=== PATIENT | female | born 1995 | race Caucasian/White ===

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

== ENCOUNTER 2017-04-18 18:51 | Emergency (ER) | payer MEDICAID, MEDICARE ==
[~2017-04-18] VITALS: Ht 172.7 cm; Wt 101.6 kg
[2017-04-18 19:13] VITALS: BP_SYST 124
[2017-04-18] MEDS ORDERED: ONDANSETRON 4 MG ODT TAB PO ONE (20:15)
[2017-04-18] MEDS ORDERED: IBUPROFEN 800 MG TABLET PO ONE (20:15)
[2017-04-18 20:26] LABS: BILIRUBIN,URINE NEGATIVE (NEGATIVE); BLOOD, URINE NEGATIVE (NEGATIVE); CLARITY/URINE SL CLOUDY (CLEAR); COLOR,URINE YELLOW (YELLOW); GLUCOSE,URINE NEGATIVE (NEGATIVE); KETONES,URINE TRACE (NEGATIVE); LEUKOCYTE ESTERASE ,URINE TRACE (NEGATIVE); NITRITE, URINE NEGATIVE (NEGATIVE); PH,URINE 7.5 (5.0-8.0); PROTEIN URINE NEGATIVE (NEGATIVE); UROBILINOGEN,URINE 0.2 (0.2-1.0)
[2017-04-18] MEDS ORDERED: NACL 0.9% 1,000 ML IV ONE (20:45)
[2017-04-18] MEDS ORDERED: ONDANSETRON HCL 4 MG/2 ML VIAL IVP ONE (20:45)
[2017-04-18] MEDS ORDERED: KETOROLAC TROMETHAMINE 30 MG VIAL IVP ONE (20:45)
[2017-04-18 20:50] LABS: INFLUENZA A&B ANTIGEN SCREEN NEGATIVE FOR A & B (NEGATIVE)
[2017-04-18 20:52] LABS: STREPTOCOCCUS A SCREEN (RAPID) POSITIVE (NEGATIVE)
[2017-04-18] MEDS ORDERED: PENICILLIN G BENZATHINE 1.2 MMU/2 ML SYR IM ONE (21:00)
[2017-04-18 21:05] LABS: RBC,URINE NONE SEEN /HPF (0-3)
[2017-04-18 21:06] LABS: BACTERIA,URINE FEW /HPF (None Seen)
[2017-04-18] MEDS ORDERED: AZITHROMYCIN 250 MG TABLET PO ONE (21:30)
[2017-04-18] MEDS: cefTRIAXone 1 GM IVPB PREMIX 50 ML IV ONE ×2 (21:42→21:44)
[2017-04-18 22:25] VITALS: BP_SYST 120
== END 2017-04-18 22:25 | disposition home or self-care (01) ==
LOC: SED 18:51
DX: J02.0 Streptococcal pharyngitis (principal); N10 Acute pyelonephritis; R03.0 Elevated blood-pressure reading, without diagnosis of hypertension
CPT/HCPCS: 36415; 81000; 81025; 86403; 86710; 87040; 87086; 87491; 87591; 96361; 96365; 96372; 96375; 99284; J0561; J0696; J1885; J2405; J7030; Q0144

== ENCOUNTER 2017-12-18 21:39 | Emergency (ER) | payer MEDICAID ==
[~2017-12-18] VITALS: Ht 170.2 cm; Wt 113.4 kg
[2017-12-18 21:40] VITALS: BP_SYST 101
--- NOTE | 2017-12-18 21:40 | NUR ---
Patient triaged and placed in waiting room. VSS and patient appears in no acute distress at this time. Accompanied by family, awaiting available bed, and MD notified of need for MSE.
--- NOTE | 2017-12-18 22:34 | NUR ---
Pt c/o nausea and vomiting with abdominal pain x 1 day. Pt denies dysuria, no vaginal discharge or bleeding. Pt states that she is about 19 weeks . No active vomiting at this time.
--- NOTE | 2017-12-18 22:34 | NUR ---
Patient to ER bed 3 to gown for evaluation. Side rails up. Report given to [place]io.
[2017-12-18] MEDS ORDERED: NACL 0.9% 1,000 ML IV ONE (22:37)
[2017-12-18] MEDS ORDERED: ONDANSETRON HCL 4 MG/2 ML VIAL IVP ONE (22:45)
--- NOTE | 2017-12-18 23:00 | NUR ---
Dr. Nichols at bedside.
[2017-12-18 23:02] LABS: BILIRUBIN,URINE NEGATIVE (NEGATIVE); BLOOD, URINE NEGATIVE (NEGATIVE); CLARITY/URINE CLEAR (CLEAR); COLOR,URINE YELLOW (YELLOW); GLUCOSE,URINE NEGATIVE (NEGATIVE); KETONES,URINE TRACE (NEGATIVE); LEUKOCYTE ESTERASE ,URINE NEGATIVE (NEGATIVE); NITRITE, URINE NEGATIVE (NEGATIVE); PH,URINE 6.5 (5.0-8.0); PROTEIN URINE NEGATIVE (NEGATIVE); UROBILINOGEN,URINE 0.2 (0.2-1.0)
[2017-12-18 23:18] LABS: BASOPHILS % (AUTO) 0.3 % (0.0-2.0); EOSINOPHILS # (AUTO) 0.2 K/uL (0.0-0.4); EOSINOPHILS % (AUTO) 1.4 % (0.0-4.0); HEMATOCRIT 36.3 % (36-48); LYMPHOCYTES # (AUTO) 2.4 K/uL (1.0-5.5); LYMPHOCYTES % (AUTO) 20.3 % (20.5-51.5); MEAN CORPUSCULAR HEMOGLOBIN 28 pg (27-31); MEAN CORPUSCULAR HGB CONC 33 % (32-36); MEAN CORPUSCULAR VOLUME 83 fL (79.0-98.0); MONOCYTES # (AUTO) 0.7 K/uL (0.0-1.0); MONOCYTES % (AUTO) 5.7 % (1.7-9.3); NEUTROPHILS # (AUTO) 8.3 K/uL (1.8-7.7); NEUTROPHILS % (AUTO) 72.3 % (40.0-70.0); PLATELET COUNT (AUTO) 321 K/uL (130-430); RED BLOOD CELL COUNT(AUTO) 4.36 MIL/uL (4.2-6.2); RED CELL DISTRIBUTION WIDTH 13.9 % (9.0-15.0); WHITE BLOOD COUNT (AUTO) 11.6 K/uL (4.5-11.0)
[2017-12-18 23:22] LABS: ALBUMIN 3.4 g/dL (3.4-4.8); CALCIUM 9.1 mg/dL (8.4-11.0); CREATININE 0.67 mg/dL (0.55-1.30); POTASSIUM 3.4 mmol/L (3.5-5.1); TOTAL BILIRUBIN 0.2 mg/dL (0.0-1.0)
--- NOTE | 2017-12-19 00:35 | NUR ---
Patient assessed for heart tones with portable doppler. No heart tones heard at this time. 2nd nurse to attempt assessment of heart tones at this time.
[2017-12-19 00:56] VITALS: BP_SYST 115
--- NOTE | 2017-12-19 00:56 | NUR ---
Patient given written and verbal discharge instructions and verbalizes understanding. ER MD discussed with patient the results and treatment provided. Patient in stable condition. ID arm band removed. IV catheter removed intact and dressing applied, no active bleeding. Rx of Zofran given. Patient educated on pain management and to follow up with PMD. Pain Scale 1/10. Opportunity for questions provided and answered. Medication side effect fact sheet provided.
== END 2017-12-19 00:56 | disposition home or self-care (01) ==
LOC: SED 21:39
DX: O21.0 Mild hyperemesis gravidarum (principal); Z3A.16 16 weeks gestation of pregnancy
CPT/HCPCS: 36415; 80053; 81003; 82150; 83690; 85025; 96361; 96374; 99284; J2405; J7030

== ENCOUNTER 2018-08-30 11:28 | Emergency (ER) | payer MEDICAID ==
[~2018-08-30] VITALS: Ht 170.2 cm; Wt 117.9 kg
[2018-08-30 11:36] VITALS: BP_SYST 156
--- NOTE | 2018-08-30 11:40 | NUR ---
Patient triaged and placed in waiting room. VSS and patient appears in no acute distress at this time. Accompanied by self , awaiting available bed, and MD notified of need for MSE.
--- NOTE | 2018-08-30 13:54 | NUR ---
BROUGHT BACK TO BED #8 AND REPORT GIVEN TO MARIA ESTHER
--- NOTE | 2018-08-30 13:56 | NUR ---
Pt brought by self ,A&Ox4, pt presents to ER with L facial pain and L gum pain , denies trauma, skin pink and warm, cap refill <3, VSS, no facial swelling noted.
--- NOTE | 2018-08-30 14:10 | NUR ---
Dr Vale at bedside examining patient.
[2018-08-30 14:51] VITALS: BP_SYST 141
--- NOTE | 2018-08-30 14:52 | NUR ---
Patient given written and verbal discharge instructions and verbalizes understanding. ER MD discussed with patient the results and treatment provided. Patient in stable condition. ID arm band removed Rx of MOTRIN given. Patient educated on pain management and to follow up with PMD. Pain Scale 0/10. Opportunity for questions provided and answered. Medication side effect fact sheet provided.
== END 2018-08-30 14:51 | disposition home or self-care (01) ==
LOC: SED 11:28
DX: K05.10 Chronic gingivitis, plaque induced (principal); R03.0 Elevated blood-pressure reading, without diagnosis of hypertension
CPT/HCPCS: 81025; 99283

== ENCOUNTER 2020-02-11 10:00 | Emergency (ER) | payer MEDICAID, SELFPAY ==
[~2020-02-11] VITALS: Ht 167.6 cm; Wt 77.1 kg
--- NOTE | 2020-02-11 10:20 | NUR ---
Patient triaged and placed in waiting room. VSS and patient appears in no acute distress at this time. Accompanied by self, awaiting available bed, and MD notified of need for MSE.
[2020-02-11 10:22] VITALS: BP_SYST 128
--- NOTE | 2020-02-11 10:30 | NUR ---
Pt brought by self, A&Ox4, pt presents to ER with SOB, covid +, O2 98 % at this time, skin pink and warm, cap refill <3, VSS.
--- NOTE | 2020-02-11 10:45 | NUR ---
Dr Graham evaluating patient in the tent
[2020-02-11 12:17] VITALS: BP_SYST 128
--- NOTE | 2020-02-11 12:17 | NUR ---
Patient given written and verbal discharge instructions and verbalizes understanding. ER MD discussed with patient the results and treatment provided. Patient in stable condition. ID arm band removed. Rx of Albuterol and Zofran given. Patient educated on pain management and to follow up with PMD. Pain Scale 2/10. Opportunity for questions provided and answered. Medication side effect fact sheet provided.
== END 2020-02-11 12:17 | disposition home or self-care (01) ==
LOC: SED 10:00
DX: U07.1 COVID-19 (principal); R06.02 Shortness of breath; R05 Cough
CPT/HCPCS: 99283

== ENCOUNTER 2020-03-18 18:12 | Emergency (ER) | payer MEDICAID, SELFPAY ==
[~2020-03-18] VITALS: Ht 170.2 cm; Wt 122.5 kg
[2020-03-18 18:15] VITALS: BP_SYST 147
[2020-03-18] MEDS ORDERED: LIDOCAINE 1% 10 MG/ML, 20 ML MDV INJ ONE (19:15)
[2020-03-18] MEDS ORDERED: BACITRACIN 1 GM OINT TP ONE ×2 (19:15→20:10)
[2020-03-18 20:08] VITALS: BP_SYST 140
== END 2020-03-18 20:08 | disposition home or self-care (01) ==
LOC: SED 18:12
DX: S61.412A Laceration without foreign body of left hand, initial encounter (principal); W25.XXXA Contact with sharp glass, initial encounter; Y93.89 Activity, other specified; Y92.89 Other specified places as the place of occurrence of the external cause; Y99.8 Other external cause status
CPT/HCPCS: 12002; 73130; 99283; J2001

== ENCOUNTER 2020-03-21 22:25 | Emergency (ER) | payer MEDICAID, SELFPAY ==
[~2020-03-21] VITALS: Ht 170.2 cm; Wt 122.5 kg
[2020-03-21 22:38] VITALS: BP_SYST 127
--- NOTE | 2020-03-21 22:38 | NUR ---
PT PLACED IN ER TENT
--- NOTE | 2020-03-21 22:40 | NUR ---
ED MD HOBBS AT PT SIDE TO EVALUATE PT
--- NOTE | 2020-03-21 22:40 | NUR ---
PT BIB SELF CC WORRIED ABOUT WOUND REPAIR TO LEFT HAND DONE AT ER THREE DAYS AGO PT STATES SHE FEELS LIKE THE WOUND OPENED UP 2 STITCHES PLACED 3 DAYS AGO TO LEFT HAND BETWEEN THUMB AND INDEX FINGER PT STATES THAT SHE THOUGHT IT OPENED UP OR NEEDED MORE STITCHES. WOUND IS WELL APROXIMATED NOT BLEEDING. VITAL SIGNS STABLE WILL CONTINUE TO MONITOR
[2020-03-21 23:05] VITALS: BP_SYST 127
--- NOTE | 2020-03-21 23:05 | NUR ---
Patient given written and verbal discharge instructions and verbalizes understanding. ER MD HOBBS discussed with patient the results and treatment provided. Patient in stable condition. ID arm band removed. Patient educated on pain management and to follow up with PMD. Pain Scale 0/10. Opportunity for questions provided and answered. Medication side effect fact sheet provided.
== END 2020-03-21 23:05 | disposition home or self-care (01) ==
LOC: SED 22:25
DX: S61.412D Laceration without foreign body of left hand, subsequent encounter (principal); W45.8XXD Other foreign body or object entering through skin, subsequent encounter
CPT/HCPCS: 99281

== ENCOUNTER 2021-01-11 10:22 | Emergency (ER) | payer MEDICAID, SELFPAY ==
[~2021-01-11] VITALS: Ht 170.2 cm; Wt 83.9 kg
[2021-01-11 10:27] VITALS: BP_SYST 111
[2021-01-11] MEDS ORDERED: ONDANSETRON 4 MG ODT TAB PO ONE (10:45)
[2021-01-11 11:22] LABS: CALCIUM 9.1 mg/dL (8.4-11.0); CREATININE 0.71 mg/dL (0.55-1.30); POTASSIUM 4.2 mmol/L (3.5-5.1)
[2021-01-11 11:23] LABS: BASOPHILS % (AUTO) 0.3 % (0.0-2.0); EOSINOPHILS # (AUTO) 0.2 K/uL (0.0-0.4); EOSINOPHILS % (AUTO) 1.5 % (0.0-4.0); HEMOGLOBIN 13.6 g/dL (12.0-16.0); LYMPHOCYTES # (AUTO) 1.8 K/uL (1.0-5.5); LYMPHOCYTES % (AUTO) 14.8 % (20.5-51.5); MEAN CORPUSCULAR HEMOGLOBIN 27 pg (27-31); MEAN CORPUSCULAR HGB CONC 33 % (32-36); MEAN CORPUSCULAR VOLUME 81 fL (79.0-98.0); MONOCYTES # (AUTO) 0.6 K/uL (0.0-1.0); MONOCYTES % (AUTO) 4.5 % (1.7-9.3); NEUTROPHILS # (AUTO) 9.5 K/uL (1.8-7.7); NEUTROPHILS % (AUTO) 78.9 % (40.0-70.0); PLATELET COUNT (AUTO) 414 K/uL (130-430); RED BLOOD CELL COUNT(AUTO) 5.07 MIL/uL (4.2-6.2); RED CELL DISTRIBUTION WIDTH 14.1 % (9.0-15.0); WHITE BLOOD COUNT (AUTO) 12.1 K/uL (4.8-10.8)
[2021-01-11] MEDS ORDERED: ONDA-8 TL (11:40)
[2021-01-11] MEDS ORDERED: IBUP-1969 PO (11:40)
== END 2021-01-11 12:07 | disposition home or self-care (01) ==
LOC: SED 10:22
DX: A08.39 Other viral enteritis (principal); Z79.899 Other long term (current) drug therapy
CPT/HCPCS: 36415; 71045; 80048; 81025; 85025; 99284; Q0162

== ENCOUNTER 2021-04-09 16:01 | Emergency (ER) | payer MEDICAID ==
[~2021-04-09] VITALS: Ht 162.6 cm; Wt 79.4 kg
[~2021-04-09 16:01] MED LIST: IBUP-1969 PO; ONDA-8 TL
[2021-04-09 17:14] VITALS: BP_SYST 122
[2021-04-09 17:41] LABS: BASOPHILS # (AUTO) 0.2 K/uL (0.0-0.2); BASOPHILS % (AUTO) 1.4 % (0.0-2.0); EOSINOPHILS # (AUTO) 0.2 K/uL (0.0-0.4); EOSINOPHILS % (AUTO) 1.5 % (0.0-4.0); HEMATOCRIT 39.7 % (36-48); LYMPHOCYTES # (AUTO) 2.7 K/uL (1.0-5.5); LYMPHOCYTES % (AUTO) 22.6 % (20.5-51.5); MEAN CORPUSCULAR HEMOGLOBIN 26 pg (27-31); MEAN CORPUSCULAR HGB CONC 33 % (32-36); MEAN CORPUSCULAR VOLUME 80 fL (79.0-98.0); MONOCYTES # (AUTO) 0.8 K/uL (0.0-1.0); MONOCYTES % (AUTO) 6.5 % (1.7-9.3); PLATELET COUNT (AUTO) 373 K/uL (130-430); RED BLOOD CELL COUNT(AUTO) 4.94 MIL/uL (4.2-6.2); RED CELL DISTRIBUTION WIDTH 14.4 % (9.0-15.0); WHITE BLOOD COUNT (AUTO) 11.7 K/uL (4.8-10.8)
[2021-04-09 17:59] LABS: PROTHROMBIN TIME 9.7 SECS (9.5-12.5)
[2021-04-09] MEDS ORDERED: ACETAMINOPHEN 500 MG TABLET PO ONE (18:30)
== END 2021-04-09 18:54 | disposition home or self-care (01) ==
LOC: SED 16:01
DX: N94.6 Dysmenorrhea, unspecified (principal); Z79.899 Other long term (current) drug therapy
CPT/HCPCS: 36415; 76801; 81025; 84702; 85025; 85610-TC; 85730-TC; 86900; 86901; 99284

== ENCOUNTER 2022-01-28 08:29 | Emergency (ER) | payer MEDICAID ==
[~2022-01-28] VITALS: Ht 170.2 cm; Wt 131.5 kg
--- NOTE | 2022-01-28 08:30 | NUR ---
Pt brought by self, A&Ox4, pt presents to ER with cough/congestion, skin pink and warm, cap refill <3, VSS, will cont to monitor.
[2022-01-28 08:48] VITALS: BP_SYST 150
--- NOTE | 2022-01-28 09:15 | NUR ---
Dr Sandhu evaluating patient at bedside
[2022-01-28] MEDS ORDERED: BENZ100C92 PO (10:05)
[2022-01-28] MEDS ORDERED: ALBMDI INH (10:05)
[2022-01-28 10:49] VITALS: BP_SYST 150
--- NOTE | 2022-01-28 10:50 | NUR ---
Patient given written and verbal discharge instructions and verbalizes understanding. ER MD discussed with patient the results and treatment provided. Patient in stable condition. ID arm band removed. Rx of Albuterol and Benzonatate given. Patient educated on pain management and to follow up with PMD. Pain Scale 2/10 . Opportunity for questions provided and answered. Medication side effect fact sheet provided.
== END 2022-01-28 10:49 | disposition home or self-care (01) ==
LOC: SED 08:29
DX: J06.9 Acute upper respiratory infection, unspecified (principal); R05.9 Cough, unspecified; R50.9 Fever, unspecified; R11.10 Vomiting, unspecified; J45.909 Unspecified asthma, uncomplicated; Z79.899 Other long term (current) drug therapy; Z20.822 Contact with and (suspected) exposure to COVID-19
CPT/HCPCS: 36415; 99283

== ENCOUNTER 2022-07-31 18:02 | Emergency (ER) | payer MEDICAID ==
[~2022-07-31 18:02] MED LIST changes: +ALBMDI INH; +BENZ100C92 PO
[2022-07-31 18:33] VITALS: BP_SYST 132
--- NOTE | 2022-07-31 18:40 | NUR ---
PT TRIAGED. PT STABLE. GAVE PT URINE CUP FOR SPECIMEN COLLECTION. PT WAITING IN ER LOBBY.
[2022-07-31 19:02] LABS: BASOPHILS # (AUTO) 0.2 K/uL (0.0-0.2); BASOPHILS % (AUTO) 0.8 % (0.0-2.0); EOSINOPHILS # (AUTO) 0.3 K/uL (0.0-0.4); EOSINOPHILS % (AUTO) 1.4 % (0.0-4.0); HEMATOCRIT 35.8 % (36-48); HEMOGLOBIN 11.4 g/dL (12.0-16.0); LYMPHOCYTES # (AUTO) 2.8 K/uL (1.0-5.5); LYMPHOCYTES % (AUTO) 13.5 % (20.5-51.5); MEAN CORPUSCULAR HEMOGLOBIN 23 pg (27-31); MEAN CORPUSCULAR HGB CONC 32 % (32-36); MEAN CORPUSCULAR VOLUME 72 fL (79.0-98.0); MONOCYTES # (AUTO) 0.9 K/uL (0.0-1.0); MONOCYTES % (AUTO) 4.1 % (1.7-9.3); NEUTROPHILS # (AUTO) 16.7 K/uL (1.8-7.7); NEUTROPHILS % (AUTO) 80.2 % (40.0-70.0); PLATELET COUNT (AUTO) 535 K/uL (130-430); RED BLOOD CELL COUNT(AUTO) 4.98 MIL/uL (4.2-6.2); RED CELL DISTRIBUTION WIDTH 18.1 % (9.0-15.0); WHITE BLOOD COUNT (AUTO) 20.9 K/uL (4.8-10.8)
[2022-07-31 19:18] LABS: CALCIUM 8.8 mg/dL (8.4-11.0); CREATININE 0.75 mg/dL (0.55-1.30)
[2022-07-31 19:23] LABS: ALBUMIN 3.6 g/dL (3.4-4.8); TOTAL BILIRUBIN 0.3 mg/dL (0.0-1.0)
[2022-07-31 19:50] LABS: BILIRUBIN,URINE NEGATIVE (NEGATIVE); BLOOD, URINE NEGATIVE (NEGATIVE); CLARITY/URINE CLEAR (CLEAR); COLOR,URINE YELLOW (YELLOW); GLUCOSE,URINE NEGATIVE (NEGATIVE); KETONES,URINE NEGATIVE (NEGATIVE); LEUKOCYTE ESTERASE ,URINE NEGATIVE (NEGATIVE); NITRITE, URINE NEGATIVE (NEGATIVE); PROTEIN URINE NEGATIVE (NEGATIVE); UROBILINOGEN,URINE 0.2 (0.2-1.0)
--- NOTE | 2022-07-31 20:10 | NUR ---
PT BIB SO FROM HOME C/O LOWER ABD PAIN THAT RADIATES TO PATRICIO FLANK. PT STATES PAIN IS 8/10 AND IS SHARP. PT STATES HAS MEAD, N, AND VOMITING X 2 DAYS. PT STATES HX OF HTN AND ANEMIA. PT IS RESTING IN BED WITH RAILS UP VSS
--- NOTE | 2022-07-31 20:30 | NUR ---
ER at bedside examining patient.
[2022-07-31] MEDS ORDERED: MORPHINE 4 MG INJ. 4 MG/ML VIAL IVP ONE ×2 (21:15→23:30)
[2022-07-31] MEDS ORDERED: ONDANSETRON HCL 4 MG/2 ML VIAL IVP ONE (21:15)
[2022-07-31] MEDS ORDERED: NACL 0.9% 1,000 ML IV ONE (21:15)
--- NOTE | 2022-07-31 21:58 | NUR ---
PT [facility] TEST NEGATIVE PER [employer]. PT TO CT FOR TESTING
[2022-07-31] MEDS ORDERED: PIPERACILLIN/TAZO 3.375 GM in NS 50 ML IV ONE (22:00)
[2022-07-31] MEDS ORDERED: PIPERACILLIN/TAZOBACTAM 3.375 GM/VIAL (ZOSYN) IV ONE (22:12)
--- NOTE | 2022-07-31 23:25 | NUR ---
ER at bedside discussing results
[2022-08-01] MEDS ORDERED: ONDA8TAB60 PO (00:34)
[2022-08-01] MEDS ORDERED: IBUP-1971 PO (00:34)
[2022-08-01] MEDS ORDERED: HYDR-3927 PO (00:35)
[2022-08-01 00:45] VITALS: BP_SYST 110
--- NOTE | 2022-08-01 00:45 | NUR ---
Patient given written and verbal discharge instructions and verbalizes understanding. ER MD discussed with patient the results and treatment provided. Patient in stable condition. ID arm band removed. IV catheter removed intact and dressing applied, no active bleeding. Rx of MOTRIN AND ZOFRAN given. Patient educated on NAUSEA AND VOMITING, AND ABD PAIN and to follow up with PMD. Pain Scale . Opportunity for questions provided and answered. Medication side effect fact sheet provided.
== END 2022-08-01 00:45 | disposition home or self-care (01) ==
LOC: SED 18:02
DX: R10.33 Periumbilical pain (principal); D72.829 Elevated white blood cell count, unspecified; Z79.899 Other long term (current) drug therapy
CPT/HCPCS: 99285; 74177; 96365; 96375; 96361; 80053; 83690; 85025; 87040; 36415; 76376; 96376; 81025; 83605; 81003; J2405; J2543; J2270; Q9967; J7030

== ENCOUNTER 2022-08-28 10:11 | Emergency (ER) | payer MEDICAID ==
[~2022-08-28] VITALS: Ht 170.2 cm; Wt 133.4 kg
[~2022-08-28 10:11] MED LIST changes: +IBUP-1971 PO; +ONDA8TAB60 PO
[2022-08-28 10:38] VITALS: BP_SYST 103; PULSE 65; RESP 18; TEMP 97; O2SAT 99
--- NOTE | 2022-08-28 10:41 | NUR ---
Patient to ER bed 7 to gown for evaluation. Side rails up. Report given to Melony LAWSON.
--- NOTE | 2022-08-28 11:15 | NUR ---
ER at bedside examining patient.
--- NOTE | 2022-08-28 11:20 | NUR ---
Patient is a 26-year-old female with a history of anemia and asthma who presents to the ED for a right first digit laceration over the PIP joint that occurred yesterday afternoon. No other traumatic injury/pain elsewhere. Denies numbness, tingling, or focal weakness.
[2022-08-28] MEDS ORDERED: CEPH-548 PO (11:21)
--- NOTE | 2022-08-28 11:30 | NUR ---
PT STATES UNKNOWN DOSAGE AND TIME OF TDAP. MD NOTIFIED. ORDERS TO GIVE IM VACCINE FOLLOWED OF TDAP. PT GAVE CONSENT.
--- NOTE | 2022-08-28 11:48 | NUR ---
Patient given written and verbal discharge instructions and verbalizes understanding. ER MD discussed with patient the results and treatment provided. Patient in stable condition. ID arm band removed. Rx of CEPHALEXIN given. Patient educated on pain management and to follow up with PMD. Pain Scale . Opportunity for questions provided and answered. Medication side effect fact sheet provided.
[2022-08-28] MEDS ORDERED: DIPH-TET Vacc 0.5 ML VIAL I.M. ONE (11:55)
[2022-08-28 12:01] VITALS: RESP 18; TEMP 97; O2SAT 99
== END 2022-08-28 11:48 | disposition home or self-care (01) ==
LOC: SED 10:11
DX: S61.011A Laceration without foreign body of right thumb without damage to nail, initial encounter (principal); J45.909 Unspecified asthma, uncomplicated; Z79.899 Other long term (current) drug therapy; X58.XXXA Exposure to other specified factors, initial encounter; Y93.89 Activity, other specified; Y92.89 Other specified places as the place of occurrence of the external cause; Y99.8 Other external cause status
CPT/HCPCS: 90714; 99283

== ENCOUNTER 2023-03-12 15:37 | Emergency (ER) | payer SELFPAY ==
[~2023-03-12] VITALS: Ht 170.2 cm; Wt 112.0 kg
[~2023-03-12 15:37] MED LIST changes: +CEPH-548 PO
[2023-03-12 15:49] VITALS: BP_SYST 114; PULSE 75; RESP 17; TEMP 97.1; O2SAT 99
[2023-03-12 16:29] LABS: BILIRUBIN,URINE NEGATIVE (NEGATIVE); BLOOD, URINE 2+ (NEGATIVE); CLARITY/URINE CLOUDY (CLEAR); COLOR,URINE YELLOW (YELLOW); GLUCOSE,URINE NEGATIVE (NEGATIVE); KETONES,URINE 2+ (NEGATIVE); LEUKOCYTE ESTERASE ,URINE 2+ (NEGATIVE); NITRITE, URINE POSITIVE (NEGATIVE); PROTEIN URINE 2+ (NEGATIVE); UROBILINOGEN,URINE 0.2 (0.2-1.0)
[2023-03-12 16:49] LABS: BACTERIA,URINE MANY /HPF (None Seen); MUCUS,URINE None Seen /LPF (None Seen); WBC,URINE >100 /HPF (0-3)
[2023-03-12 16:56] LABS: BASOPHILS # (AUTO) 0.1 K/uL (0.0-0.2); BASOPHILS % (AUTO) 0.7 % (0.0-2.0); EOSINOPHILS # (AUTO) 0.3 K/uL (0.0-0.4); EOSINOPHILS % (AUTO) 3.1 % (0.0-4.0); HEMATOCRIT 35.8 % (36-48); HEMOGLOBIN 11.8 g/dL (12.0-16.0); LYMPHOCYTES % (AUTO) 19.6 % (20.5-51.5); MEAN CORPUSCULAR HEMOGLOBIN 25 pg (27-31); MEAN CORPUSCULAR HGB CONC 33 % (32-36); MEAN CORPUSCULAR VOLUME 77 fL (79.0-98.0); MONOCYTES # (AUTO) 0.6 K/uL (0.0-1.0); MONOCYTES % (AUTO) 6.1 % (1.7-9.3); NEUTROPHILS # (AUTO) 7.1 K/uL (1.8-7.7); NEUTROPHILS % (AUTO) 70.5 % (40.0-70.0); PLATELET COUNT (AUTO) 459 K/uL (130-430); RED BLOOD CELL COUNT(AUTO) 4.64 MIL/uL (4.2-6.2); RED CELL DISTRIBUTION WIDTH 18.6 % (9.0-15.0)
[2023-03-12 17:01] LABS: INR 1.1 (0.8-1.2)
[2023-03-12] MEDS ORDERED: NITR-85 PO (17:55)
[2023-03-12 18:20] VITALS: BP_SYST 112; PULSE 72; RESP 17; TEMP 97.1; O2SAT 99
== END 2023-03-12 18:00 | disposition home or self-care (01) ==
LOC: SED 15:37
DX: O23.41 Unspecified infection of urinary tract in pregnancy, first trimester (principal); N39.0 Urinary tract infection, site not specified; O26.891 Other specified pregnancy related conditions, first trimester; J45.909 Unspecified asthma, uncomplicated; Z3A.01 Less than 8 weeks gestation of pregnancy; Z79.899 Other long term (current) drug therapy
CPT/HCPCS: 36415; 76856; 81000; 81001; 81015; 84702; 85025; 85610; 86900; 86901; 87086; 99284

== ENCOUNTER 2023-04-14 19:56 | Emergency (ER) | payer MEDICAID ==
[~2023-04-14] VITALS: Ht 170.2 cm; Wt 103.4 kg
[~2023-04-14 19:56] MED LIST changes: +NITR-85 PO
[2023-04-14 20:15] VITALS: BP_SYST 109; PULSE 83; RESP 18; TEMP 98.1; O2SAT 98
[2023-04-14] MEDS: NACL 0.9% 1,000 ML IV ONE (21:02)
[2023-04-14 21:24] LABS: BASOPHILS % (AUTO) 0.3 % (0.0-2.0); EOSINOPHILS # (AUTO) 0.2 K/uL (0.0-0.4); EOSINOPHILS % (AUTO) 1.8 % (0.0-4.0); HEMOGLOBIN 11.4 g/dL (12.0-16.0); LYMPHOCYTES # (AUTO) 1.7 K/uL (1.0-5.5); LYMPHOCYTES % (AUTO) 16.2 % (20.5-51.5); MEAN CORPUSCULAR HEMOGLOBIN 26 pg (27-31); MEAN CORPUSCULAR HGB CONC 33 % (32-36); MEAN CORPUSCULAR VOLUME 79 fL (79.0-98.0); MONOCYTES # (AUTO) 0.6 K/uL (0.0-1.0); MONOCYTES % (AUTO) 5.7 % (1.7-9.3); NEUTROPHILS # (AUTO) 7.8 K/uL (1.8-7.7); PLATELET COUNT (AUTO) 336 K/uL (130-430); WHITE BLOOD COUNT (AUTO) 10.2 K/uL (4.8-10.8)
[2023-04-14 22:03] LABS: CREATININE 0.58 mg/dL (0.55-1.30); POTASSIUM 3.3 mmol/L (3.5-5.1)
[2023-04-14 22:21] VITALS: BP_SYST 109; PULSE 83; RESP 18; TEMP 98.1; O2SAT 98
== END 2023-04-14 22:21 | disposition home or self-care (01) ==
LOC: SED 19:56
DX: O03.9 Complete or unspecified spontaneous abortion without complication (principal); Z3A.09 9 weeks gestation of pregnancy; J45.909 Unspecified asthma, uncomplicated; Z79.899 Other long term (current) drug therapy
CPT/HCPCS: 99284; 96360; 80048; 84702; 85025; 86886; 86900; 86901; 36415; 76817; J7030